=== PATIENT | male | born 1985 | race African-American/Black ===

== ENCOUNTER 2021-08-08 16:38 | Emergency (ER) | payer OTHER ==
[~2021-08-08] VITALS: Ht 162.6 cm; Wt 64.9 kg
[2021-08-08 16:43] VITALS: BP 141/80
--- NOTE | 2021-08-08 17:21 | NUR ---
Patient discharged to [facility] in stable condition. Written and verbal after care instructions given. Patient verbalizes understanding of instruction.
== END 2021-08-08 17:22 ==
LOC: ER 16:38
DX: S50.311A Abrasion of right elbow, initial encounter (principal); X58.XXXA Exposure to other specified factors, initial encounter; Y93.89 Activity, other specified; Y92.89 Other specified places as the place of occurrence of the external cause; Y99.8 Other external cause status